=== PATIENT | male | born 1985 | race Caucasian/White ===

== ENCOUNTER → 2016-10-03 | Outpatient (CLI) | payer OTHER ==
[~2016-10-03] MED LIST: EC-NAPROSYN500 MG PO; FLOVENT DISKUS50 MCG INH; HUMALOG KW200 UNIT/1 SUBQ; HUMALOG100 UNIT/2; INVOKANA300 MG PO; LEVEMIR FL100 UNIT/1 SUBQ; LO-DOSE ASPIRIN81 M1 PO; METFORMIN HCL1000 M1 PO; MULTI VITAMIN1 EACH PO; PRINIVIL20 M1 PO; ZOCOR20 MG PO
--- NOTE | ~2016-10-03 | CR97 ---
[facility] A Service of [facility] RADIOLOGY TEXT RESULTS PATIENT: NELL SMITH LOCATION: [facility] : 83 UNIT #: [id number] AGE: [address]: Fam Hodges SEX: M ORDER DR: [id number] [address] [address] [id number] O MR#: [id number] Acc #: [id number] NAME: NELL SMITH : 1985 SEX: M STUDY DATE/TIME: 10/03/2016 9:00 UNIT: [facility] ROOM: STUDY DESCRIPTION: CR Esophagram Attending Physician: Fam Hodges M.D. Referring Physician: Fam Hodges M.D. Ordering Physician: Fam Hodges M.D. Primary Care Physician: Rafa Chan M.D. MEDICAL IMAGING REPORT This report is preliminary unless electronic signature is present EXAM Single contrast barium esophagram. INDICTION Preoperative examination prior to laparoscopic gastric band surgery as well as shortness of breath with activity. TECHNIQUE The patient was administered thin barium and multiple fluoroscopic images were obtained. FINDINGS Thoracic esophagus is of more normal caliber and there is no evidence of stricture or mass lesion. No hiatal hernia was seen. No reflux was identified. Total fluoroscopy time 0.2 minutes and 8 fluoroscopic images were obtained. IMPRESSION Normal single contrast barium esophagram. Dictated by... Reshma Ford M.D. THIS IS AN ELECTRONICALLY VERIFIED REPORT Reshma Ford M.D. at 10/06/2016 5:06 PM AFF/amanda TD: 10/06/2016 13:36 JOB #: [id number] MEDICAL IMAGING REPORT [facility] A Service of [facility] RADIOLOGY TEXT RESULTS PATIENT: NELL SMITH LOCATION: [facility] : 83 UNIT #: [id number] AGE: [address]: Fam Hodges SEX: M ORDER DR: Page 1 of 1 COPY
--- NOTE | ~2016-10-03 | EKG ---
PATIENT: NELL MSITH UNIT #: [id number] Ventricular Rate: 58 BPM Atrial Rate: 58 BPM P-R Interval: 148 ms QRS Duration: 96 ms Q-T Interval: 394 ms QTC Calculation(Bezet): 386 ms P Rumford: 58 degrees Calculated R Rumford: 19 degrees Calculated T Rumford: 9 degrees Diagnosis Line: Sinus bradycardia Diagnosis Line: Otherwise normal ECG Diagnosis Line: No previous ECGs available Diagnosis Line: Confirmed by KRISH GARCIA MD ([id number]) on Diagnosis Line: 10/03/2016 2:46:45 PM INTERPRETING MD: RADHA BUTLER
--- NOTE | ~2016-10-03 | CR63 ---
[facility] A Service of [facility] RADIOLOGY TEXT RESULTS PATIENT: NELL SMITH LOCATION: [facility] : 84 UNIT #: [id number] AGE: [address]: Fam Hodges SEX: M ORDER DR: [id number] [facility] [place], [place] [address] [id number] O MR#: [id number] Acc #: [id number] NAME: NELL SMITH : 1985 SEX: M STUDY DATE/TIME: 10/03/2016 8:17 UNIT: [facility] ROOM: STUDY DESCRIPTION: CR Chest 2 View Attending Physician: Fam Hodges M.D. Referring Physician: Fam Hodges M.D. Ordering Physician: Fam Hodges M.D. Primary Care Physician: Rafa Chan M.D. MEDICAL IMAGING REPORT This report is preliminary unless electronic signature is present EXAM Chest, two views, 10/03/2016. HISTORY A 31-year-old male patient preop clearance for laparoscopic adjustable gastric band placement and possible paraesophageal hernia repair. COMPARISON STUDIES None. FINDINGS PA and lateral chest views show normal cardiac size and configuration. Hilar structures and mediastinal contours are preserved. Thoracic fusion rods are intact but only partially imaged. Bilateral lungs are expanded and clear. Costophrenic angles are preserved. Large body habitus noted. IMPRESSION Stable negative chest. Thoracic fusion rods appear to be intact though only partially imaged. Large body habitus. Dictated by... Sven Gandara M.D. THIS IS AN ELECTRONICALLY VERIFIED REPORT Sven Gandara M.D. at 10/03/2016 1:33 PM ESTHER/bhakti TD: 10/03/2016 12:48 JOB #: [id number] MEDICAL IMAGING REPORT [facility] A Service of [facility] RADIOLOGY TEXT RESULTS PATIENT: NELL SMITH LOCATION: [facility] #: [id number] : 83 UNIT #: [id number] AGE: [address]: Fam Hodges SEX: M ORDER DR: Page 1 of 1 COPY
[2016-10-03 09:52] LABS: HEMATOCRIT 40.2 % (38.0-50.0); HEMOGLOBIN 13.3 gm/dL (13.0-16.0); MEAN CELL VOLUME 87.5 FL (83-96); MEAN CORPUSCULAR HEMOGLOBIN 28.9 PG (28-34); MEAN CORPUSCULAR HGB CONC 33.1 g/dL (30-36); MEAN PLATELET VOLUME 8.9 FL (6.5-11.5); RED BLOOD COUNT 4.59 X10e (3.90-5.60); RED CELL DISTRIBUTION WIDTH 14.5 % (11.0-15.5)
[2016-10-03 11:01] LABS: BILIRUBIN,TOTAL 0.4 mg/dL (0.2-2.0); BUN/CREATININE RATIO 18.33; CALCIUM SERUM 9.1 mg/dL (8.4-10.2); CREATININE SERUM 1.2 mg/dL (0.6-1.4); GLOM FILT RATE Estimated 79.6 mL/min (>60); POTASSIUM 4.1 mmol/L (3.5-5.1); PROTEIN TOTAL SERUM 6.8 g/dL (6.0-8.3)
== END | disposition home or self-care (01) ==
LOC: CRAD 07:56 → CAMB 09:00
PROVIDERS: Surgery
DX: Z01.818 Encounter for other preprocedural examination (principal); Z98.1 Arthrodesis status
CPT/HCPCS: 36415; 71020; 74220; 80053; 80061; 84443; 85027; 93005

== ENCOUNTER → 2016-10-15 | Day surgery (SDC) | payer OTHER ==
--- NOTE | ~2016-10-15 | OR ---
Unit #: [id number] #: [id number] Patient: NELL SMITH [id number] [address] [address] [id number] O MR#: [id number] NAME: NELL SMITH ROOM: Date of Procedure: 10/15/2016 Admission Date: 10/15/2016 Surgeon: Fam Hodges M.D. : 1985 Attending Physician: Fam Hodges M.D. Primary Care Physician: Rafa Chan M.D. OPERATIVE REPORT PREOPERATIVE DIAGNOSES Morbid obesity with comorbidities. POSTOPERATIVE DIAGNOSES Morbid obesity with comorbidities with paraesophageal hernia. PROCEDURES PERFORMED 1. Repair of paraesophageal hernia. 2. Laparoscopic adjustable band placement. ANESTHESIA General endotracheal. COMPLICATIONS None. ESTIMATED BLOOD LOSS Minimal. EXTRUSION PRESS OPERATOR Scotty Donaldson M.D. DESCRIPTION OF PROCEDURE After the patient was prepped and draped in usual fashion, an area of approximately 10 cm below just to the left of the midline, was palpated and anesthetized with Marcaine. An incision transversely was made, approximately 3 cm in length. Using the Visiport, the peritoneal cavity was entered. The peritoneal cavity was insufflated in the usual fashion. Under direct vision, an epigastric 5-mm port, a right upper quadrant 5-mm port, a left upper quadrant medial 11-mm port and a left upper quadrant lateral 5-mm port were placed. A liver retractor was placed into the peritoneal cavity. The left lobe of the liver was elevated to expose the esophagus and khadar. The lesser omentum was opened with electrocautery. The peritoneum was scored over the top of the esophagus superiorly. The left and right khadar were both exposed. In doing this, a paraesophageal hernia was encountered. This was closed with a single [id number] stitch of 0 Ethibond. With this, a tunnel was made in the retrogastric position in the usual fashion using the graspers. The area of the medial portion of the left khadar was examined. The fat pad was identified. The peritoneum was broken into bluntly and the gallbladder grasper was used to create a posterior gastric tunnel bringing this out to left of the stomach in the usual fashion at the angle of His. With this, the Lap-Band was Unit #: [id number] #: [id number] Patient: NELL SMITH placed into the peritoneal cavity. The tubing was grasped, placed within the jaws of the retrogastric grasper and pulled through in the usual fashion. The tubing was placed through the locking mechanism, but this was not cinched down and locked yet. With this, an area of the cardia was tacked up to the left khadar of the diaphragm using 0 Ethibond. An area of lower cardia to the upper body was sutured across the top of the band over to the pouch as well. With this, the band was cinched down and locked. An inferior plicating stitch was placed. This was started inferiorly to the band and near the lesser curvature. A bite was taken. A second bite superiorly was draped over this and a third bite just lateral to the band was draped over this as well. This was sutured down and tied in the usual fashion as well. With this, the tubing was brought out through the lower midline trocar site. The abdomen was desufflated after the liver retractor had been removed. The hub was applied. An inferior pocket was developed through the lower midline trocar site. The hub was placed on top of the fascia through this pocket site. The wounds were closed with 4-0 Vicryl sutures. Steri-Strips and dressings applied. The patient was taken to the recovery room in good condition. Dictated by... Joselyn Irwin/talia TD: 10/16/2016 05:46 JOB #: [id number] OPERATIVE REPORT Page 1 of 1 X Fam Hodges PROCEDURE OPERATIVE NOTE
--- NOTE | ~2016-10-15 | CR7 ---
[facility] Service of [facility] RADIOLOGY TEXT RESULTS PATIENT: NELL SMITH LOCATION: [facility] : 83 UNIT #: [id number] AGE: [address]: Fam Hodges SEX: M ORDER DR: [id number] [facility] [address] [place], [place] [address] [id number] O MR#: [id number] Acc #: [id number] NAME: NELL SMITH : 1985 SEX: M STUDY DATE/TIME: 10/15/2016 10:30 UNIT: [facility] ROOM: STUDY DESCRIPTION: CR Abdomen Single AP View Attending Physician: Fam Hodges M.D. Ordering Physician: Fam Hodges M.D. Primary Care Physician: Rafa Chan M.D. MEDICAL IMAGING REPORT This report is preliminary unless electronic signature is present EXAM Abdomen and portable, 10/15/2016, 1030 hours. CLINICAL HISTORY Postop lap-band placement today. Abdominal pain today. COMPARISON Esophagram, 10/03/2016. FINDINGS Single supine view of the abdomen demonstrates a new Lap-Band to the left of T10 oriented at 48 degrees from vertical. There is radiopaque tubing extending to a port overlying the left iliac crest. IMPRESSION New Lap-Band projects to the left of T10 oriented at 48 degrees from vertical. Radiopaque tubing courses inferiorly to the left iliac crest. Bowel gas pattern unremarkable. Dictated by... Carmen Groves M.D. THIS IS AN ELECTRONICALLY VERIFIED REPORT Carmen Groves M.D. at 10/15/2016 8:27 PM YARELIS/dima TD: 10/15/2016 15:38 JOB #: [id number] MEDICAL IMAGING REPORT Page 1 of 1 COPY
== END | disposition home or self-care (01) ==
LOC: CSUR 06:48
DX: E66.01 Morbid (severe) obesity due to excess calories (principal); K44.9 Diaphragmatic hernia without obstruction or gangrene; J45.909 Unspecified asthma, uncomplicated; M19.90 Unspecified osteoarthritis, unspecified site; I10 Essential (primary) hypertension; E78.5 Hyperlipidemia, unspecified; G47.33 Obstructive sleep apnea (adult) (pediatric); E11.9 Type 2 diabetes mellitus without complications; Z68.42 Body mass index [BMI] 45.0-49.9, adult; Z87.01 Personal history of pneumonia (recurrent); Z88.0 Allergy status to penicillin; Z79.82 Long term (current) use of aspirin; Z79.51 Long term (current) use of inhaled steroids; Z79.4 Long term (current) use of insulin; Z79.899 Other long term (current) drug therapy; Z98.1 Arthrodesis status
CPT/HCPCS: 74000; 82947; C1781; J0330; J1650; J1885; J2250; J2405; J2710; J3010; J3370; L8699